=== PATIENT | female | born 1985 | race Caucasian/White ===

== ENCOUNTER 2017-11-22 18:26 | Emergency (ER) | payer MEDICAID ==
[~2017-11-22] VITALS: Ht 167.6 cm; Wt 85.4 kg
[2017-11-22 18:44] VITALS: BP 124/91
[2017-11-22] MEDS ORDERED: AMOXICILLIN PO (19:05)
[2017-11-22] MEDS ORDERED: PHENTERMINE HCL PO (19:05)
[2017-11-22] MEDS ORDERED: KETOROLAC 30 MG/1 ML ONE (19:12)
[2017-11-22] MEDS ORDERED: KETOROLAC 60 MG/2 ML IM ONE (19:30)
== END 2017-11-22 20:17 | disposition home or self-care (01) ==
LOC: ED 19:24
DX: N64.4 Mastodynia (principal); F31.9 Bipolar disorder, unspecified; F41.1 Generalized anxiety disorder
CPT/HCPCS: 76642; 93005; 96372; 99284; J1885